=== PATIENT | female | born 1995 | race Hispanic/Latino ===

== ENCOUNTER 2024-08-30 19:27 | Emergency (ER) | payer OTHER ==
[~2024-08-30] VITALS: Ht 165.1 cm; Wt 78.9 kg
[2024-08-30] MEDS ORDERED: IBUPROFEN 400 MG TAB PO ONE (21:45)
[2024-08-30] MEDS ORDERED: AMOXICILLIN/CLAVULANATE K 875 MG HOME.PACK PO ONE (23:45)
[2024-08-30] MEDS ORDERED: TRIMETHOPRIM/SULFAMETHOXAZOLE 1 EA HOME.PACK PO ONE (23:45)
[2024-08-30] MEDS ORDERED: HYDROCODONE BIT/ACETAMINOPHEN 5/325 MG 1 TAB HOME.PACK PO PRN (23:45)
[2024-08-30] MEDS ORDERED: HYDROCODON-ACE1 EA10 PO (23:53)
[2024-08-30] MEDS ORDERED: BACTRIM DS TAB1 EACH PO (23:53)
[2024-08-30] MEDS ORDERED: AMOX TR-K CLV1 EAC1 PO (23:53)
[2024-08-31 00:23] VITALS: BP 105/65
== END 2024-08-31 00:23 | disposition home or self-care (01) ==
LOC: ED 19:27
DX: N76.4 Abscess of vulva (principal)
CPT/HCPCS: 99283; A9270